=== PATIENT | male | born 1955 | race Caucasian/White ===

== ENCOUNTER → 2017-05-12 | Outpatient (CLI) | payer BC ==
[~2017-05-12] MED LIST: ALLO300T PO; CHOL100011 PO; OMEG300C PO; OMEP-110 PO; OMEP20TA62 PO; PANT40TA3 PO; RED600CA2 PO; UBID100C41 PO; [UNRECOGNIZED DRUG - OTHER] PO
== END ==
LOC: STAR 09:25
PROVIDERS: ATTEND Thoracic Surgery (Cardiothoracic Vascular Surgery)
DX: Z02.9 Encounter for administrative examinations, unspecified (principal)

== ENCOUNTER 2017-05-18 06:28 | Observation (INO) | payer BC ==
[~2017-05-18] VITALS: Ht 190.5 cm; Wt 105.2 kg
[2017-05-18] MEDS ORDERED: BUPIVACAINE/PF 0.5% ONE (06:57)
[2017-05-18] MEDS ORDERED: ACET-1600 PO (07:37)
[2017-05-18] MEDS ORDERED: LACTATED RINGERS 1,000 ML IV SCH (07:37)
[2017-05-18 07:38] VITALS: BP 150/95
[2017-05-18] MEDS ORDERED: FENTANYL PF 250 MCG/5ML ONE (08:11)
[2017-05-18] MEDS ORDERED: MIDAZOLAM 1 MG/ML, 2ML ONE (08:11)
[2017-05-18] MEDS ORDERED: ONDANSETRON 2MG/ML, 2ML ONE (09:19)
[2017-05-18] MEDS ORDERED: GLYCOPYRROLATE 0.2MG/1ML, 5ML ONE (09:19)
[2017-05-18] MEDS ORDERED: EPHEDRINE 50 MG/ML, 1ML ONE (09:19)
[2017-05-18] MEDS ORDERED: NEOSTIGMINE 1 MG/ML, 10ML ONE (09:19)
[2017-05-18] MEDS ORDERED: PROPOFOL 10 MG/ML, 20ML ONE (09:19)
[2017-05-18] MEDS ORDERED: PHENYLEPHRINE 10 MG/ML ONE (09:19)
[2017-05-18] MEDS ORDERED: CEFAZOLIN 1,000 MG ONE (09:19)
[2017-05-18] MEDS ORDERED: SUCCINYLCHOLINE 20 MG/ML, 10ML ONE (09:19)
[2017-05-18] MEDS ORDERED: DEXAMETHASONE 4 MG/ML, 1ML ONE (09:19)
[2017-05-18] MEDS ORDERED: ROCURONIUM 10 MG/ML ONE (09:19)
[2017-05-18] MEDS ORDERED: MEPERIDINE/PF 25MG/0.5ML IVPush PRN (09:30)
[2017-05-18] MEDS ORDERED: ACETAMINOPHEN 325 MG TABLET PO PRN (09:30)
[2017-05-18] MEDS ORDERED: ALBUTEROL SULFATE 2.5 MG/3 ML NPPB PRN (09:30)
[2017-05-18] MEDS ORDERED: METOPROLOL 1 MG/ML, 5ML IV PRN (09:30)
[2017-05-18] MEDS ORDERED: FENTANYL PF 100 MCG/2ML IV PRN (09:30)
[2017-05-18] MEDS ORDERED: hydrALAzine 20 MG/ML, 1ML IV PRN ×2 (09:30→10:30)
[2017-05-18] MEDS ORDERED: HYDROmorphone 1 MG/ML, 1ML IV PRN (09:30)
[2017-05-18] MEDS ORDERED: PROMETHAZINE 25 MG/ML, 1ML IV PRN (09:30)
[2017-05-18] MEDS ORDERED: OXYcodone 5 MG/5 ML ORAL.SOL UDC PO PRN (09:30)
[2017-05-18] MEDS ORDERED: HYDROmorphone 1 MG/ML, 1ML ONE (09:49)
[2017-05-18] MEDS ORDERED: FLU VACC QS2017-18 (36MOS+) UP/PF 0.5 ML IM-VACC ONE (10:00)
[2017-05-18] MEDS ORDERED: KETOROLAC 30 MG/1 ML IV PRN (10:30)
[2017-05-18] MEDS ORDERED: LORazepam 2 MG/ML, 1ML IV PRN (10:30)
[2017-05-18] MEDS ORDERED: morphine SULFATE 10 MG/ML, 1ML IV PRN (10:30)
[2017-05-18] MEDS ORDERED: PROMETHAZINE 12.5 MG SUPP PR PRN (10:30)
[2017-05-18] MEDS ORDERED: PROMETHAZINE 25 MG/ML, 1ML IM PRN (10:30)
[2017-05-18] MEDS ORDERED: DIPHENHYDRAMINE 50 MG/ML, 1ML IV PRN (10:30)
[2017-05-18] MEDS ORDERED: HYDROcodone/APAP 7.5-325MG/15ML UDC PO PRN (10:30)
[2017-05-18] MEDS ORDERED: SCOPOLAMINE PATCH, 1MG PATCH.TD72 TD ONE (10:30)
[2017-05-18] MEDS ORDERED: ENALAPRILAT 1.25 MG/ML, 2ML IV PRN (10:30)
[2017-05-18] MEDS ORDERED: ACETAMINOPHEN 650 MG/20.3 ML UDC ONE (10:35)
[2017-05-18] MEDS ORDERED: FENTANYL PF 100 MCG/2ML ONE (10:35)
[2017-05-18] MEDS ORDERED: OXYcodone 5 MG/5 ML ORAL.SOL UDC ONE (10:36)
[2017-05-18 11:31] VITALS: BP 118/77
[2017-05-18] MEDS: CEFAZOLIN PMX 2GM/50ML 50 ML IVPB SCH ×2 (13:16→21:39)
[2017-05-18] MEDS: LACTATED RINGERS 1,000 ML IV SCH (13:18)
[2017-05-18 14:23] VITALS: BP 132/88
[2017-05-18] MEDS: ONDANSETRON 2MG/ML, 2ML IVPush PRN ×2 (17:43→21:40)
[2017-05-18 20:58] VITALS: BP 145/87
[2017-05-18 23:55] VITALS: BP 134/85
[2017-05-19] MEDS: LACTATED RINGERS 1,000 ML IV SCH (00:29)
[2017-05-19 02:59] VITALS: BP 124/71
[2017-05-19] MEDS: ONDANSETRON 2MG/ML, 2ML IVPush PRN (07:23)
[2017-05-19] MEDS ORDERED: PANTOPROZOLE 40MG TABLET PO SCH (07:30)
[2017-05-19 07:47] VITALS: BP 121/74
[2017-05-19] MEDS ORDERED: HYDR473S51 PO (08:50)
[2017-05-19] MEDS ORDERED: ALLOPURINOL 300 MG TABLET PO SCH (09:00)
[2017-05-19] MEDS ORDERED: ENOXAPARIN 40 MG/0.4 ML SQ SCH (09:00)
== END 2017-05-19 09:30 | disposition home or self-care (01) ==
LOC: OUT 06:28 → ORIP 10:18 → 4NOR 11:27
PROVIDERS: ADMIT Thoracic Surgery (Cardiothoracic Vascular Surgery); ATTEND Thoracic Surgery (Cardiothoracic Vascular Surgery)
DX: K44.9 Diaphragmatic hernia without obstruction or gangrene (principal); K21.9 Gastro-esophageal reflux disease without esophagitis
CPT/HCPCS: 43282; 96365; 96366; 96372; 96375; 96376; G0378; J0690; J1100; J1170; J1650; J1885; J2250; J2370; J2405; J2704; J2710; J3010; J3490; J7120; Q4116; J0330